=== PATIENT | female | born 1950 | race Caucasian/White ===

== ENCOUNTER 2024-12-24 21:37 | Emergency (ER) | payer BC, OTHER ==
[2024-12-24 21:57] VITALS: RESP 16; BMI 24.5
[2024-12-24 22:05] VITALS: BP 130/75; PULSE 78; TEMP 98
== END 2024-12-24 22:47 | disposition home or self-care (01) ==
LOC: FER 21:37
DX: S61.211A Laceration without foreign body of left index finger without damage to nail, initial encounter (principal); S61.202A Unspecified open wound of right middle finger without damage to nail, initial encounter; W27.4XXA Contact with kitchen utensil, initial encounter
CPT/HCPCS: 99283-25